=== PATIENT | female | born 1985 | race Caucasian/White ===

== ENCOUNTER 2016-08-25 14:14 | Emergency (ER) | payer OTHER ==
[~2016-08-25] VITALS: Ht 165.1 cm; Wt 72.0 kg
[~2016-08-25 14:14] MED LIST: BACTRIM,SEPT1 TABLET PO; BENTYL20 MG PO; Chronulac,Cephulac,E PO; DAY TIME SOFTG1 EACH PO; DOXYCYCLINE HY100 M3 PO; FIBER GUMMIES1 EACH PO; FLAGYL500 MG PO; FLEXERIL10 MG PO; HYDROCODON-ACE1 EAC7 PO; IMODIUM A-D2 MG PO; KEFLEX500 MG PO; LYRICA50 MG PO; MACROBID100 MG PO; METHADONE10 MG PO; MIRALAX17 GM PO; MOTRIN600 MG PO; MOTRIN800 MG PO; NAPROSYN500 MG PO; NAPROXEN500 MG PO; NORCO 5/3251 TABLET PO; Omnicef PO; PERCOCET 10/1 TABLET PO; PERCOCET 5/31 TABLET PO; TYLENOL REGULA325 MG PO; ULTRAM ER100 MG PO; ULTRAM50 MG PO; ZANAFLEX4 M1 PO; ZITHROMAX250 MG PO; ZOFRAN ODT4 MG PO
[2016-08-25 17:20] VITALS: BP 99/61
== END 2016-08-25 17:27 | disposition home or self-care (01) ==
LOC: EME 14:14
DX: S93.402A Sprain of unspecified ligament of left ankle, initial encounter (principal); S83.92XA Sprain of unspecified site of left knee, initial encounter; X50.9XXA Other and unspecified overexertion or strenuous movements or postures, initial encounter; Z88.1 Allergy status to other antibiotic agents; Z88.0 Allergy status to penicillin
CPT/HCPCS: 73564; 73610; 73630; 99281; 99283

== ENCOUNTER 2017-03-30 21:45 | Emergency (ER) | payer OTHER ==
[~2017-03-30] VITALS: Ht 165.1 cm; Wt 81.1 kg
[2017-03-30] MEDS ORDERED: LIDODERM 5% P1 PATCH TD (23:07)
[2017-03-30] MEDS ORDERED: NAPROSYN500 MG PO (23:07)
[2017-03-30] MEDS ORDERED: FLEXERIL10 MG PO (23:07)
[2017-03-30 23:14] VITALS: BP 122/72
== END 2017-03-30 23:15 | disposition home or self-care (01) ==
LOC: EME 21:45
DX: G89.29 Other chronic pain (principal); M54.5 Low back pain; M62.830 Muscle spasm of back; Z88.0 Allergy status to penicillin; Z88.1 Allergy status to other antibiotic agents
CPT/HCPCS: 99281; 99284; J1885; J3360

== ENCOUNTER 2017-07-19 13:56 | Emergency (ER) | payer OTHER ==
[~2017-07-19] VITALS: Ht 165.1 cm; Wt 78.2 kg
[~2017-07-19 13:56] MED LIST changes: +LIDODERM 5% P1 PATCH TD
[2017-07-19 17:00] VITALS: BP 117/67
== END 2017-07-19 17:01 | disposition home or self-care (01) ==
LOC: EME 13:56
DX: S39.012A Strain of muscle, fascia and tendon of lower back, initial encounter (principal); S80.01XA Contusion of right knee, initial encounter; V47.0XXA Car driver injured in collision with fixed or stationary object in nontraffic accident, initial encounter; Y92.410 Unspecified street and highway as the place of occurrence of the external cause; F17.200 Nicotine dependence, unspecified, uncomplicated; Z88.0 Allergy status to penicillin
CPT/HCPCS: 72100; 73564; 99281; 99283

== ENCOUNTER 2017-08-10 19:40 | Emergency (ER) | payer OTHER ==
[~2017-08-10] VITALS: Ht 165.1 cm; Wt 79.2 kg
[2017-08-10] MEDS ORDERED: MOTRIN800 MG PO (23:12)
[2017-08-10] MEDS ORDERED: BACTRIM,SEPT1 TABLET PO (23:12)
[2017-08-10] MEDS ORDERED: PERCOCET 5/31 TABLET PO (23:12)
[2017-08-10 23:38] VITALS: BP 96/77
== END 2017-08-10 23:46 | disposition home or self-care (01) ==
LOC: EME 19:40
PROC: 0H9BXZZ Drainage of Right Upper Arm Skin, External Approach (ICD-10-PCS; principal; 2017-08-10)
DX: L02.411 Cutaneous abscess of right axilla (principal); J45.909 Unspecified asthma, uncomplicated; F32.9 Major depressive disorder, single episode, unspecified; F41.9 Anxiety disorder, unspecified; G25.81 Restless legs syndrome; M41.9 Scoliosis, unspecified; F17.200 Nicotine dependence, unspecified, uncomplicated; Z88.0 Allergy status to penicillin; Z88.1 Allergy status to other antibiotic agents
CPT/HCPCS: 99281; 99284

== ENCOUNTER 2018-03-28 12:50 | Emergency (ER) | payer OTHER ==
[~2018-03-28] VITALS: Ht 167.6 cm; Wt 74.5 kg
[2018-03-28] MEDS ORDERED: ABILIFY15 MG PO (13:38)
[2018-03-28] MEDS ORDERED: TRILEPTAL300 MG PO (13:38)
[2018-03-28] MEDS ORDERED: ZIPRASIDONE HCL40 MG PO (13:39)
[2018-03-28 14:00] LABS: HEMATOCRIT 34.8 % (36.0-46.0); HEMOGLOBIN 11.7 G/DL (11.9-15.5); MCH 30.4 PG (29.0-34.0); MCHC 33.6 G/DL (30.0-36.0); MCV 90.4 FL (83-99); PLATELET COUNT 323 K/uL (156-360); RBC DIS.WIDTH-CV 12.9 % (11.8-14.6); RBC DIS.WIDTH-SD 42.3 % (39-53); RED BLOOD COUNT 3.85 M/uL (3.80-5.20); WHITE BLOOD COUNT 11.2 K/uL (4.1-10.2)
[2018-03-28 14:14] LABS: CHLORIDE 102 mEq/L (99-109); POTASSIUM 4.2 mEq/L (3.7-5.4); SODIUM 141 mEq/L (136-147)
[2018-03-28 14:16] LABS: GLUCOSE 112 mg/dL (70-99)
[2018-03-28 14:20] LABS: CREATININE 0.7 mg/dL (0.6-1.3); GFR ESTIMATE (CALCULATED) > 59 mL/min/
[2018-03-28 14:21] LABS: UREA NITROGEN (BUN) 21 mg/dL (9-23)
[2018-03-28] MEDS ORDERED: FLEXERIL10 MG PO (14:27)
[2018-03-28 14:33] VITALS: BP 143/70
== END 2018-03-28 14:38 | disposition home or self-care (01) ==
LOC: EME 12:50
PROVIDERS: Nurse Practitioner Family
DX: S70.01XA Contusion of right hip, initial encounter (principal); S33.5XXA Sprain of ligaments of lumbar spine, initial encounter; G89.18 Other acute postprocedural pain; W01.0XXA Fall on same level from slipping, tripping and stumbling without subsequent striking against object, initial encounter; Z98.1 Arthrodesis status; J45.909 Unspecified asthma, uncomplicated; G25.81 Restless legs syndrome; M41.9 Scoliosis, unspecified; F32.9 Major depressive disorder, single episode, unspecified; F17.200 Nicotine dependence, unspecified, uncomplicated; Z88.0 Allergy status to penicillin
CPT/HCPCS: 71046; 72100; 73502; 80048; 85027; 99281; 99284